=== PATIENT | male | born 1935 | race Caucasian/White ===

== ENCOUNTER 2016-11-18 07:19 | Day surgery (SDC) | payer MEDICARE, OTHER ==
--- NOTE | ~2016-11-18 | OP ---
Record Of Operation [facility] [address] [place]. [address] NAME: KAREN GENAO SR : 35 STATUS : [facility]#: [id number] AGE: 81 ADM/REG DATE : 11/18/16 MR#: [id number] REPORT SERV DATE: 11/19/16 DICTATED BY: JIMENEZ HAYDEN DATE: 11/18/16 REPORT STATUS : Draft TRANSCRIBED BY: LIZL DATE: 11/18/16 DATE OF PROCEDURE: 11/18/2016 PREPROCEDURE DIAGNOSIS: End-stage renal disease. POSTOPERATIVE DIAGNOSIS: End-stage renal disease. PROCEDURE PERFORMED: Creation of a right brachiocephalic arteriovenous fistula. SURGEON: Jimenez Hayden MD ATTENDING SUREGON: Leyda Mathew MD ANESTHESIA: Local MAC. COMPLICATIONS: None. INDICATION FOR PROCEDURE: Secondary to this very pleasant 81-year-old gentleman presenting with evidence of end-stage renal disease and need for dialysis access. Recommendations were made for right brachiocephalic AV fistula secondary to adequate venous vasculature and chronic complications with the left arm, shoulder region. Secondary to the above, risks and benefits were discussed. Consent was given. DETAILS OF PROCEDURE: The patient was brought to the operating room, placed in supine position, prepped and draped in routine sterile fashion with attention to the right upper extremity. The cephalic vein was clearly visualized. An incision was then placed just above the antecubital crease after appropriate local MAC anesthesia. Dissection was proceeded down to the cephalic vein, which was skeletonized along its length, ligated, and divided and then a small clamp was then placed to prevent backbleeding. Dissection was proceeded down to the brachial artery. A 3000 units of heparin was given and allowed to circulate. The artery was then loop-controlled, proximally and distally, opened anteriorly 3-4 mm and then an end-to-side anastomosis was then performed with a 6-0 Prolene on BV needle in a running continuous stitch. This was hemostatic upon completion and had excellent thrill through the cephalic vein. There was no tension on the anastomosis. Deep layers were then closed with Vicryl, interrupted Monocryl was then used for skin, and standard dressings were applied. The patient tolerated the procedure well. SHARA/GWYN Jimenez Hayden M.D. / [id number] Record Of Operation [address] [address] NAME: KAREN GENAO : 35 STATUS : [facility] PAT#: [id number] AGE: 81 ADM/REG DATE : 11/18/16 MR#: [id number] REPORT SERV DATE: 11/19/16 DICTATED BY: JIMENEZ HAYDEN DATE: 11/18/16 REPORT STATUS : Draft TRANSCRIBED BY: GWYN DATE: 11/18/16 CC: Colten Bailey D.O.
[~2016-11-18 07:19] MED LIST: ACCUFLORA PROBIOTIC PO; ADVAIR250 INH; ALEVE220 MG PO; ANOROELLIPTA INH; APRES50 PO; ASAB PO; ATROVENT HFA17 MCG INH; AUG875 PO; B COMPLEX-C OR; B COMPLEX-C PO; BUM1 PO; CENTRUM PO; CENTRUM TAB1 TAB PO; CINNAMON PO; CO Q-10 PO; CO Q-10100 MG PO; CO-Q-10 PO; COQ10100 MG OR; CYANO1000T PO; DAYQUIL PO; EZFE 200200 MG PO; GOLD BOND TOP; GOODY'S EX-STR1 EAC1 PO; HALF81 PO; IRON INFUSION INF; IRON INFUSIONS IV; IRON325 MG PO; KLOR-CON M2020 MEQ PO; KLOR-CON20 MEQ PO; L20 PO; L40 PO; LIPITOR80 MG PO; LISINOPRIL40 MG PO; LOP25 PO; MONODOX100 MG PO; MULTIVIT/MIN PO; NORCO1 TA1 PO; NORV25 PO; NORV5 PO; OSTEO BI-FLEX1 EACH PO; OTC PROBIOTIC PO; OTC SLEEP AID PO; OTC VITAMIN D PO; P10 PO; PLAVIX PO; POTASSIUM; PRILO PO; PRIN10 PO; PROBIOTIC OTC PO; PROBIOTIC PO; SPIRIVA INH; VIT C/RHIPS/ OR; VIT C/RHIPS/ PO; VITAMIN B PO; VITAMIN B-12 OTC PO; VITAMIN B-12 PO; VITAMIN B-121000 MC1 SL; VITAMIN C OTC PO; VITAMIN C PO; VITAMIN C100 MG PO; VITAMIN D OTC PO; VITAMIN D31000 UNIT PO; VITC500 PO; Z-PAK PO; ZESTRIL10 MG PO
[2016-11-18 07:56] LABS: BASOPHILS 0.4 %; BASOPHILS ABSOLUTE 0.03 10/3/uL (0.0-0.16); EOSINOPHILS 7.3 %; HEMATOCRIT 27.2 % (40.0-51.0); HEMOGLOBIN 9.1 g/dL (13.6-17.8); IMMATURE GRANULOCYTES 0.1 %; IMMATURE GRANULOCYTES ABSOLUTE 0.01 10/3/uL (0.0-0.11); LYMPHOCYTES 16.4 %; LYMPHOCYTES ABSOLUTE 1.12 10/3/uL (0.67-4.30); MEAN CORPUSCULAR HEMOGLOB 29.4 pg (26.0-34.0); MEAN PLATELET VOLUME 10.4 fL (9.2-13.0); MONOCYTES 7.6 %; MONOCYTES ABSOLUTE 0.52 10/3/uL (0.21-1.20); NEUTROPHILS 68.2 %; NEUTROPHILS ABSOLUTE 4.66 10/3/uL (2.02-8.40); PLATELET COUNT 120 10/3/uL (150-400); RED CELL COUNT 3.09 10/6/uL (4.7-6.1); WHITE BLOOD CELLS 6.8 10/3/uL (4.5-10.5)
[2016-11-18 07:58] LABS: MANUAL DIFF NO %; MEAN CORPUS HGB CONC 33.5 g/dL (32.0-36.0); RBC DISTRIBUTION WIDTH 15.1 % (12.0-16.0)
[2016-11-18 08:03] LABS: INTERNATIONAL NORMAL RATI 1.2 UNITS (-); PROTIME (NOT ORD) 14.9 SEC (12.0-14.5)
[2016-11-18 08:07] LABS: CALCIUM, SERUM 8.4 MG/DL (8.5-10.4); CHLORIDE, SERUM 103 MMOL/L (96-112); CO2 (CARBON DIOXIDE) 24 MMOL/L (24-34); GFR AFRICAN AMERICAN 6 ML/MIN (>=60); GFR NON AFRICAN AMERICAN 6 ML/MIN (>=60); GLUCOSE, SERUM 111 MG/DL (60-99); SODIUM, SERUM 139 MMOL/L (135-148)
[2016-11-18 08:08] LABS: BUN (BLOOD UREA NITROGEN) 66 MG/DL (6-23); CREATININE 8.16 MG/DL (0.70-1.30); POTASSIUM, SERUM 4.4 MMOL/L (3.5-5.3)
[2017-05-12] MEDS ORDERED: AUG875 PO (20:40)
[2017-05-12] MEDS ORDERED: FLOMAX4 PO (20:41)
[2017-05-12] MEDS ORDERED: HALF81 PO (20:41)
[2017-05-12] MEDS ORDERED: LIPITOR80 MG PO (20:42)
[2017-05-12] MEDS ORDERED: PRILO PO (20:42)
[2017-05-12] MEDS ORDERED: BUM1 PO (20:42)
[2017-05-12] MEDS ORDERED: VITAMIN D1000 UNI1 PO (20:45)
[2017-05-12] MEDS ORDERED: CENTRUM PO (20:46)
[2017-05-12] MEDS ORDERED: PROBIOTIC OTC PO (20:46)
[2017-05-12] MEDS ORDERED: OSTEO BI-FLEX1 EACH PO (20:46)
[2017-05-12] MEDS ORDERED: CYANO1000T PO (20:46)
[2017-05-12] MEDS ORDERED: CO Q-10100 MG PO (20:46)
[2017-05-15] MEDS ORDERED: SPIRIVA INH (14:45)
== END 2016-11-18 13:27 | disposition home or self-care (01) ==
LOC: SDC 07:19
PROVIDERS: Specialist
PROC: 03170AD Bypass Right Brachial Artery to Upper Arm Vein with Autologous Arterial Tissue, Open Approach (ICD-10-PCS; principal; 2016-11-18 10:00)
DX: N18.6 End stage renal disease (principal); E78.00 Pure hypercholesterolemia, unspecified; G47.33 Obstructive sleep apnea (adult) (pediatric); J44.9 Chronic obstructive pulmonary disease, unspecified; K21.9 Gastro-esophageal reflux disease without esophagitis; D63.1 Anemia in chronic kidney disease; Z91.09 Other allergy status, other than to drugs and biological substances; Z79.82 Long term (current) use of aspirin; Z79.899 Other long term (current) drug therapy; Z96.1 Presence of intraocular lens; H91.90 Unspecified hearing loss, unspecified ear; Z45.010 Encounter for checking and testing of cardiac pacemaker pulse generator [battery]; L40.9 Psoriasis, unspecified; Z99.2 Dependence on renal dialysis; Z98.890 Other specified postprocedural states
CPT/HCPCS: 36821; 71020; 80048; 85025; 85610; 93005; J0690; J3010